=== PATIENT | female | born 1945 | race Caucasian/White ===

== ENCOUNTER 2020-02-07 03:35 | Outpatient (CLI) | payer MEDICARE, SELFPAY ==
[2020-02-08 16:50] LABS: COVID-19 RT-PCR UVMMC Result Negative (Negative)
== END 2020-02-07 03:55 ==
PROVIDERS: PCP Internal Medicine Geriatric Medicine; Visit Provider Internal Medicine Geriatric Medicine
DX: Z11.59 Encounter for screening for other viral diseases (principal)
CPT/HCPCS: U0003